=== PATIENT | female | born 1940 | race Hispanic/Latino ===

== ENCOUNTER 2017-11-23 09:51 | Outpatient (CLI) | payer MEDICARE, OTHER ==
--- NOTE | 2017-11-24 13:11 | Mammography Report ---
BILATERAL DIGITAL SCREENING MAMMOGRAM with CAD : 11/23/17 09:51:00 CLINICAL: Routine screening. COMPARISON:03/02/15 FINDINGS: The breasts are heterogeneously dense, which may obscure small masses.The fibroglandular pattern is stable with stable right upper outer parenchymal asymmetry. Bilateral benign calcifications which are mostly vascular. No mass, architectural distortion or suspicious calcifications. IMPRESSION: No mammographic evidence of malignancy. BI-RADS CATEGORY: 2 -- Benign RECOMMENDATION: Routine mammographic screening in one year. COMMENT: Patient follow-up letters are generated by our [employer] application.
== END 2017-11-23 09:52 | disposition home or self-care (01) ==
LOC: SPVWC 09:51
PROVIDERS: ATTEND Obstetrics & Gynecology
DX: Z12.31 Encounter for screening mammogram for malignant neoplasm of breast (principal)
CPT/HCPCS: 77067

== ENCOUNTER 2019-06-12 10:24 | Outpatient (CLI) | payer MEDICARE, OTHER ==
--- NOTE | 2019-06-12 11:53 | Mammography Report ---
DIGITAL SCREENING MAMMOGRAM WITH CAD, 06/12/2019 INDICATION: Routine screening mammography. TECHNIQUE: Digital bilateral 2D mammography was obtained in the craniocaudal and mediolateral obliq ue projections. This examination was interpreted with the benefit of Computer-Aided Detection analysi s. COMPARISON: 11/23/2017 and prior studies FINDINGS: Breast Density: There are scattered areas of fibroglandular density. There is no evidence of dominant mass, suspicious calcifications or architectural distortion in eithe r breast. IMPRESSION: BI-RADS Category 1: Negative. No mammographic evidence of malignancy. Recommend routine screening m ammography in one year. A "normal" or negative report should not discourage follow up or biopsy of a clinically significant f inding. A written summary of these findings will be mailed to the patient. The patient will be entered into a mammography reporting system which will generate a reminder letter for the patient's next appointmen t at the appropriate interval. The [employer] recommends yearly mammograms starting at age 40 and continuing as l ashley as a woman is in good health. Breast MRI is recommended for women with an approximate 20-25% or greater lifetime risk of breast cancer, including women with a strong family history of breast or ova sonali cancer or who have been treated for Hodgkin's disease. Signer Name: Zachariah Gutierrez MD Signed: 06/12/2019 11:48 AM Workstation Name: [id number]
== END 2019-06-12 10:25 | disposition home or self-care (01) ==
LOC: SPVWC 10:24
PROVIDERS: ATTEND Family Medicine
DX: Z12.31 Encounter for screening mammogram for malignant neoplasm of breast (principal); E78.00 Pure hypercholesterolemia, unspecified; I10 Essential (primary) hypertension
CPT/HCPCS: 77067

== ENCOUNTER 2019-07-02 11:09 | Outpatient (CLI) | payer MEDICARE, OTHER ==
--- NOTE | 2019-07-03 11:04 | Mammography Report ---
BONE DEXA CLINICAL: Post menopausal. No comparison. TECHNIQUE: 2 site bone DEXA performed on an Hologic scanner. FINDINGS: The average BMD of the lumbar spine L1-L4 is 1.087g/cm squared with a T score of +0.4 and a Z score o f +2.9. The average total BMD of the left hip is 0.854 g/cm squared with a T score of -0.7and a Z score of +1 .2. IMPRESSION: 1. WHO classification: Normal with average fracture risk based on both spine and left hip measurement s. 2. Recommend clinical correlation and routine screening. Definitions: BMD equal bone mineral density T score = BMD related to peak bone mass of young adult (Erendira expressed an standard deviation) Z score = age-matched BMD expressed in SD World health organization (WHO) diagnostic criteria Normal T score greater than equal to 1 standard deviation Osteopenia T score between -1 and -2.4 standard deviation Osteoporosis T score -2.5 standard deviation or below. Note: BMD is not the only risk factor for fracture; also consider factors such as the patient's age, risk of falling, previous osteoporotic fracture, family history of osteoporotic fractures, current sm oker and low body weight. Z scores are not calculated if greater than 80 years of age. Signer Name: Claude Ferrari MD Signed: 07/03/2019 11:00 AM Workstation Name: [id number]
== END 2019-07-02 11:10 | disposition home or self-care (01) ==
LOC: SPVWC 11:09
PROVIDERS: ATTEND Family Medicine
DX: Z78.0 Asymptomatic menopausal state (principal)
CPT/HCPCS: 77080

== ENCOUNTER 2022-04-19 09:21 | Outpatient (CLI) | payer MEDICARE, OTHER ==
--- NOTE | 2022-04-19 12:52 | Mammography Report ---
DEXA BONE DENSITY SCAN INDICATION / CLINICAL INFORMATION: POSTMENOPAUSAL STATE. 81 years Female COMPARISON: 07/02/2019 LUMBAR SPINE, L1-L4: - Bone mineral density (BMD) = 1.123 g/cm2. - T-score = 0.7 - Z-score = 3.4 Change (%) since most recent prior (if available): 3.4% increase LEFT HIP, TOTAL : - Bone mineral density (BMD) = 0.847 g/cm2. - T-score = -0.8 - Z-score = 1.3 Change (%) since most recent prior (if available): 0.8% decrease IMPRESSION: 1. WHO Classification: Normal bone density. Fracture Risk: Not Increased. Note: 10-Year Fracture Risk (FRAX) not reported. This DEXA unit lacks FRAX functionality. BMD Reporting Guidelines (ISCD, 2015) BMD Reporting in Postmenopausal Women and in Men Age 50 and Older - T-scores are preferred. - The WHO densitometric classification is applicable. BMD Reporting in Females Prior to Menopause and in Males Younger Than Age 50 - Z-scores, not T-scores, are preferred. This is particularly important in children. - A Z-score of -2.0 or lower is defined as below the expected range for age, and a Z-score above -2.0 is within the expected range for age. - Osteoporosis cannot be diagnosed in men under age 50 on the basis of BMD alone. - The WHO diagnostic criteria may be applied to women in the menopausal transition. http://www.iscd.org/official-positions/8970-jbxa-smsdalmv-positions-adult/ Signer Name: Terrence Snell MD Signed: 04/19/2022 12:48 PM Workstation Name: [id number]
== END 2022-04-19 09:22 | disposition home or self-care (01) ==
LOC: SPVWC 09:21
PROVIDERS: ATTEND Family Medicine
DX: Z13.820 Encounter for screening for osteoporosis (principal); Z78.0 Asymptomatic menopausal state
CPT/HCPCS: 77080